=== PATIENT | female | born 1945 | race Caucasian/White ===

== ENCOUNTER 2017-01-26 01:57 | Inpatient (IN) | payer OTHER, MEDICARE ==
[~2017-01-26] VITALS: Ht 167.6 cm; Wt 74.6 kg
[~2017-01-26 01:57] MED LIST: BREO ELLIPTA 11 EACH; CHLORTHALIDONE50 M1 PO; DILANTIN100 M1 PO; FOLIC ACID1 M1 PO; METHOTREXATE2.5 M2 PO; MULTI-DAY VITA1 EACH PO; PHENOBARBITAL32.4 M1; POTASSIUM CHLO20 ME2 PO; PRAVACHOL80 M1 PO; PREDNISONE2.5 M1 PO; VITAMIN D2000 UNIT PO
--- NOTE | 2017-01-26 12:31 | Admission Certification ---
Admission Certification Certification Statement - As attending physician, I certify that at the time of - admission, based on clinical presentation, severity of - symptoms, need for further diagnostic testing and - therapeutic interventions, and risk of adverse outcomes - without in-hospital treatment, in my clinical assessment, - this patient requires an acute hospital stay for a minimum - of two nights or longer. I have also considered psychsocial - factors such as support system, advanced age, financial - issues, cognitive issues, and failed out-patient treatments, - past re-admission history, safety of patient, and lack of - compliance as applicable. Specific rationale supporting this admission is: Viraj. chest surgery with postoperative intensive care unit stay
--- NOTE | 2017-01-26 12:37 | Operative Report ---
Operative/Inv Procedure Report Surgery Date: 01/26/17 Name of Procedure: Right bilobectomy with mediastinal lymph node dissection Pre-Operative Diagnosis: Right upper lobe lung cancer Post-Operative Diagnosis: Same Estimated Blood Loss: less than 50ml Surgeon/Physician Coder: QAMAR CAMACHO,YANG Molina Anesthesia: general endotracheal tube Operative/Procedure Note Note: After placement of monitoring lines and induction of general anesthesia the double-lumen endotracheal tube was properly positioned with fiberoptic bronchoscopy. The patient was placed in the left lateral decubitus position and her right chest prepped and draped in a sterile fashion. Posterolateral thoracotomy incision was made in the chest was entered through the fifth intercostal space. The tumor was isolated on the pleural surface of the right upper lobe. There was no distinction at all of the minor fissure and the tumor was adjacent to the area where the minor fissure would be predicted based upon the vascular anatomy. Given these findings a decision was made that as an oncologic procedure the patient was better suited to a right upper and middle lobectomy with concerns of inadequate lymphatic coverage. Her primary function test done preoperatively supported bilobectomy for pulmonary standpoint. Dissection was done around the hilum and the apical anterior branch was ligated with the Endo ANGIE vascular stapler. Dissection at the base of the fissure allowed completion of the fissure with the Endo ANGIE stapler anteriorly and posteriorly along the major fissure. With that the middle lobe and residual upper lobe pulmonary arterial branches were identified and divided. The superior pulmonary vein was encircled and was ligated with the Endo ANGIE vascular curve tip stapler. The middle lobe bronchus was secured with the purple load of the Endo ANGIE stapler. The upper lobe bronchus was divided with the TA 60 stapler. Intraoperative frozen section showed showed no evidence of tumor at the bronchial stump. Lymph nodes removed from level for level VII. The of her pulmonary ligament was divided and there were no lymph nodes found in this area. The bronchus was insufflated under water to 30 mmHg with no evidence of air leak. The cut edges of the fissures were sprayed with sealant. The chest was drained with straight and angled 28 Norwegian chest tube. The ribs were reapproximated pericostal suture and the lung was reinsufflated under direct vision. The wound was then closed anatomically with running Vicryl suture followed by running Vicryl subcuticular suture. The patient heart of procedure well and brought to the room awake and extubated in stable condition. CC: JAYLON CAMACHO,SUSHMA Lam; ALISSA CAMACHO,RON Loera; MAURA CAMACHO,SOMANY
--- NOTE | 2017-01-26 13:16 | RADIOLOGY REPORT ---
EXAMINATION: XR PORTABLE CHEST CLINICAL INFORMATION: Status post right lobe lobectomy COMPARISON: Prior chest 12/19/2016 TECHNIQUE: Portable frontal view of the chest was obtained. FINDINGS: 2 [address] are in place. There is no pneumothorax. Decreased lung volumes consistent with history of lobectomy. Surgical clips overlie the right chest and axillary region. Small amount of air noted in the soft tissues overlying the right chest. Lungs clear IMPRESSION: Postop changes with chest tubes in place without pneumothorax
[2017-01-26 16:00] VITALS: BP 142/78; BP 147/70
--- NOTE | 2017-01-26 16:06 | PN- Thoracic Surgery ---
Subjective Subjective: Postop check: Complaints of pain to the right lateral chest wall region. 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 She denies any shortness of breath. Objective Vital Signs and I&Os Vital signs stable afebrile O2 sat 93% on 3 L Heart rate in the 70s Physical Exam: Well-developed well-nourished no apparent distress. HEENT: Atraumatic, Neck: Supple, no lymphadenopathy. Trachea midline Respiratory: No respiratory distress Left lung with minimal crackles Right lung, breath sounds decreased, breath sounds noted throughout lung mitchell. Chest tubes with small amount of bloody drainage. Small air leak noted. Dressings clean dry and intact Extremities: No edema, no calf pain Neuro: Alert and oriented x3 Psych: Mood affect normal, Skin: Warm and dry, no rash on exposed skin Results Recent Imaging Studies: PATIENT: EFE PEREZ PRESENT AGE: 72 PATIENT ACCOUNT NO: [id number] : 44 LOCATION: [facility] ORDERING PHYSICIAN: YANG FOOTE MD, SERVICE DATE: 01/26/17 EXAM TYPE: RAD - XRY-PORTABLE CHEST XRAY EXAMINATION: XR PORTABLE CHEST CLINICAL INFORMATION: Status post right lobe lobectomy COMPARISON: Prior chest 12/19/2016 TECHNIQUE: Portable frontal view of the chest was obtained. FINDINGS: 2 [address] in place. There is no pneumothorax. Decreased lung volumes consistent with history of lobectomy. Surgical clips overlie the right chest and axillary region. Small amount of air noted in the soft tissues overlying the right chest. Lungs clear IMPRESSION: Postop changes with chest tubes in place without pneumothorax DICTATED BY: FLORIDALMA TIERNEY MD DATE/TIME DICTATED:01/26/171309 SCREEN PRINTING SUPERVISOR:SYLVIA DATE/TIME TRANSCRIBED:01/26/171309 Assessment/Plan Assessment/Plan 72-year-old female postop day 0 status post right upper lobe lobectomy Postop chest x-ray without pneumothorax, repeat in a.m. Dilaudid RADIATION THERAPY TECHNOLOGIST Supplemental oxygen and respiratory treatments as necessary Continue chest tube to low wall suction, plan to discontinue posterior chest tube tomorrow unless significant amount of bloody drainage. Perioperative antibiotics DVT prophylaxis with heparin and alps Continue usual medication, seizure meds Clear diet for now, advance as tolerated DC IV fluids and tolerating adequate by mouth Dressing change postop day 2 Continue ICU monitoring Core Measures/Miscellaneous Venous Thromboembolism VTE Risk Factors: Age > 40, Surgery VTE Contraindications: No Contraindications VTE Diagnosis: No Beta Alverto Is Beta Alverto a Home Med? No Antibiotics Is Patient on Antibiotics? Yes If Yes: prophylaxis
[2017-01-26 18:00] VITALS: BP 129/68
[2017-01-26 20:00] VITALS: BP 122/70
--- NOTE | 2017-01-26 22:22 | Admission Core Measures ---
Admission Meds I reviewed the following Meds: Current Medications Sig/Nette Start time Last Medication Dose Stop Time Status Admin Acetaminophen 650 MG Q6P PRN 01/26 1545 AC (Tylenol) Acetaminophen 1,000 MG Q8P PRN 01/26 1545 AC (Ofirmev) 01/27 1314 Al Hydroxide/Mg 30 ML Q6P PRN 01/26 1545 AC Hydroxide (Maalox Plus) Albuterol Sulfate 3 ML Q4 01/26 2200 AC 01/26 (Proventil) 1854 Albuterol Sulfate 3 ML Q4P PRN 01/26 1545 AC (Proventil) Budesonide/ 1 PUF BID 01/26 2200 AC 01/26 Formoterol Fumarate 2133 (SYMBICORT) Cefazolin Sodium 2 GM IQ8 01/26 1600 AC 01/26 (Kefzol) 01/27 0029 1726 N/A 1 UNIT (No Carrier) Chlorthalidone 50 MG DAILY 01/27 1000 AC (Hygroton) Cholecalciferol 2,000 IU DAILY 01/27 1000 AC (Vitamin D) Dextrose/Sodium 1,000 ML .[id number] 01/26 1545 AC 01/26 Chloride 1546 (D5-Normal Saline) Docusate Sodium 100 MG DAILY NEEDED PRN 01/26 1545 AC (Colace) Folic Acid 1 MG DAILY 01/27 1000 AC (Folic Acid) Heparin Sodium 5,000 UNIT Q8 01/26 2200 AC 01/26 (Porcine) 2133 Hydromorphone HCl 50 MG Q24H PRN 01/26 1545 CAN Sodium Chloride 45 ML (Normal Saline 50ML Bag) Hydromorphone HCl 50 MG Q24H PRN 01/26 1330 AC 01/26 (Dilaudid) 1546 Sodium Chloride 45 ML (Normal Saline 50ML Bag) Methotrexate 7.5 MG QFRI 02/02 0700 AC (Methotrexate 2.5MG Tab) Multivitamins 1 TAB DAILY 01/27 1000 AC (Theragran Vitamins) Ondansetron HCl 4 MG Q6P PRN 01/26 1545 AC (Zofran) Phenobarbital 32.4 MG TID 01/26 1600 AC 01/26 2133 Phenytoin 300 MG QPM 01/26 2200 CAN (Dilantin) Phenytoin 100 MG TID 01/26 1600 AC 01/26 (Dilantin ER) 2132 Polyethylene Glycol 17 GM DAILY NEEDED PRN 01/26 1545 AC (Miralax) Potassium Chloride 20 MEQ BID 01/26 2200 AC 01/26 (K-Dur) 2132 Pravastatin Sodium 80 MG 1700 01/27 1700 AC (Pravachol) Prednisone 2.5 MG DAILY 01/27 1000 AC (Prednisone) Prochlorperazine 10 MG Q6P PRN 01/26 1545 AC (Compazine) Promethazine HCl 12.5 MG Q6P PRN 01/26 1545 AC (Phenergen) 02/02 1314 Senna 374 MG AT BEDTIME NEED.. 01/26 1545 AC (Senokot) Acute Coronary Syndrome Inclusion Criteria ACS Diagnosis No Inpatient Core Measures LDL Reminder: If No, please order W/I first 24hr of stay Congestive Heart Failure Inclusion Criteria CHF Diagnosis No Cerebrovascular accident Inclusion Criteria CVA/TIA Diagnosis No Inpatient Core Measures Bedside Swallow Eval Reminder: If BSE failed, place ST order Antithrombotic Reminder: Order Antithrombotic Medication by end of day 2 Antithrombotic Reminder: Document Reason Antithrombotic Not ordered by end of day 2 AFIB/Flutter Reminder: If Present, add to problem list AFIB/Flutter Reminder: Order Anticoag Medication for pts with AFIB/Flutter Atherosclerosis Reminder: If Present, add to problem list LDL Reminder: If No, please order W/I first 24hr of stay PT Order Reminder: If No, please order Venous thromboembolism Inpatient Core Measures VTE Risk Factors: Surgery No [facility] V[facility] prophylaxis d/t No contraindications No VTE Pharm Prophylaxis d/t No contraindications Inclusion Criteria - Per Current guidelines, there needs to be overlap - treatment for the first 5 days of Warfarin therapy. - Parenteral Anticoagulation (IV or SC) needs to be - given along with Warfarin therapy. VTE Diagnosis No VTE Type NONE VTE Confirmed by (Test) NONE Problem List As ranked by this Provider includes Assessment & Plan 1. S/P lobectomy of lung HOME MEDS Home Med List Chlorthalidone 50 MG TABLET 1 TAB PO DAILY HTN (Reported) Cholecalciferol (Vitamin D3) (Vitamin D) 2,000 UNIT CAPSULE 1 CAP PO DAILY PROPHO (Reported) Folic Acid 1 MG TABLET 1 TAB PO DAILY PROPHO (Reported) Methotrexate 2.5 MG TABLET 3 TAB PO QW RA (Reported) Multivitamin (Multi-Day Vitamins) 1 EACH TABLET 1 TAB PO DAILY PROPHO ( Reported) Phenytoin (Dilantin) 100 MG CAPSULE 3 CAP PO NIGHTLY SEIZURE DISORDER ( Reported) Potassium Chloride 20 MEQ TAB.ER.PRT 1 TAB PO BID WITH WATER PILL (Reported) Pravastatin Sodium (Pravachol) 80 MG TABLET 1 TAB PO DAILY CHOLESTYEROL ( Reported) Prednisone 2.5 MG TABLET 1 TAB PO DAILY RA (Reported)
[2017-01-27] VITALS: BP 116/74
[2017-01-27 04:00] VITALS: BP 122/70
[2017-01-27 04:47] LABS: ABSOLUTE BASOPHIL COUNT 0 /CUMM (0.0-0.2); ABSOLUTE EOSINOPHIL COUNT 0.1 /CUMM (0.0-0.7); ABSOLUTE GRANULOCYTE CT 8.8 /CUMM (1.4-6.5); ABSOLUTE LYMPH COUNT 1.1 /CUMM (1.2-3.4); BASOPHIL % 0.2 % (0.0-2.0); EOSINOPHIL % 0.5 % (0-5); GRANULOCYTE % 80.2 % (42.2-75.2); MEAN CORPUSCULAR HGB 31.8 PG (27.0-31.0); MEAN CORPUSCULAR HGB CONC 33.4 G/DL (33.0-37.0); MEAN PLATELET VOLUME 7.1 FL (7.4-10.4); PLATELET COUNT 293 /CUMM (130-400); RBC DISTRIBUTION WIDTH 14.1 % (11.5-14.5); RED BLOOD CELL CT 4.21 /CUMM (4.20-5.40); WHITE BLOOD CELL COUNT 10.9 /CUMM (4.8-10.8)
--- NOTE | 2017-01-27 05:46 | PN- Thoracic Surgery ---
Subjective Subjective: No issues overnight. some pain, helped w pain meds. no sob/n/v. taking little clrs Objective Vital Signs and I&Os Vital Signs Date Time Temp Pulse Resp B/P B/P Pulse O2 O2 Flow FiO2 Mean Ox Delivery Rate 01/27 0400 97.8 70 14 122/70 01/27 0400 95 Nasal 2.0L Cannula 01/27 0138 96 Nasal 2.0L Cannula 01/27 0000 97.4 70 14 116/74 01/27 0000 97.4 70 14 116/74 96 Nasal 2.0L Cannula 01/27 0000 96 Nasal 2.0L Cannula 01/26 2000 97.9 78 22 122/70 01/26 2000 95 Nasal 2.0L Cannula 01/26 1910 Nasal 2.0L Cannula 01/26 1800 70 20 129/68 01/26 1800 70 20 129/68 96 Nasal 2.0L Cannula 01/26 1600 97.0 70 20 147/70 01/26 1600 97 Nasal 2.0L Cannula 01/26 1600 97.0 76 22 142/78 97 Nasal 3.0L Cannula Intake & Output 01/27 0800 01/27 0000 01/26 1600 01/26 0800 01/26 0000 01/25 1600 Intake Total 793 Output Total 790 Balance 3 Intake, IV 553 Intake, Oral 240 Output, Chest 390 Tube Drainage Output, Urine 400 Patient 165 lb Weight Weight Bed scale Measurement Method CT out: ant:40cc/8h, post:140cc/8h Physical Exam: GEN: NAD CARD: s1s2 RRR PULM: +bs throughout, dressings with bloody staining, R CTx2 to lcws, no AL, serosang drainage EXT: calves soft nt Current Medications: Current Medications Sig/Nette Start time Last Medication Dose Route Stop Time Status Admin Acetaminophen 650 MG Q6P PRN 01/26 1545 AC PO Acetaminophen 1,000 MG Q8P PRN 01/26 1545 AC IV 01/27 1314 Al Hydroxide/Mg 30 ML Q6P PRN 01/26 1545 AC Hydroxide PO Albuterol Sulfate 3 ML Q4 01/26 2200 AC 01/27 INH 0431 Albuterol Sulfate 3 ML Q4P PRN 01/26 1545 AC INH Budesonide/ 1 PUF BID 01/26 2200 AC 01/26 Formoterol Fumarate INH 2133 Cefazolin Sodium 2 GM IQ8 01/26 1600 DC 01/26 N/A 1 UNIT IV 01/27 0029 2356 Chlorthalidone 50 MG DAILY 01/27 1000 AC PO Cholecalciferol 2,000 IU DAILY 01/27 1000 AC PO Dexamethasone 8 MG .STK-MED ONE 01/26 0909 DC IM 01/26 0910 Dextrose/Sodium 1,000 ML .[id number] 01/26 1545 AC 01/27 Chloride IV 0418 Docusate Sodium 100 MG DAILY NEEDED PRN 01/26 1545 AC PO Fentanyl Citrate 250 MCG .STK-MED ONE 01/26 0908 DC IM 01/26 0909 Folic Acid 1 MG DAILY 01/27 1000 AC PO Heparin Sodium 5,000 UNIT Q8 01/26 2200 AC 01/26 (Porcine) SC 2133 Hydromorphone HCl 50 MG Q24H PRN 01/26 1545 CAN Sodium Chloride 45 ML IV Hydromorphone HCl 50 MG Q24H PRN 01/26 1330 AC 01/26 Sodium Chloride 45 ML IV 1546 Hydromorphone HCl 2 MG .STK-MED ONE 01/26 1306 DC IM 01/26 1307 Hydromorphone HCl 2 MG .STK-MED ONE 01/26 0908 DC IM 01/26 0909 Methotrexate 7.5 MG QFRI 02/02 0700 AC PO Midazolam HCl 2 MG .STK-MED ONE 01/26 0908 DC IM 01/26 0909 Multivitamins 1 TAB DAILY 01/27 1000 AC PO Ondansetron HCl 4 MG Q6P PRN 01/26 1545 AC IV Phenobarbital 32.4 MG TID 01/26 1600 AC 01/26 PO 2133 Phenytoin 300 MG QPM 01/26 2200 CAN PO Phenytoin 100 MG TID 01/26 1600 AC 01/26 PO 2133 Polyethylene Glycol 17 GM DAILY NEEDED PRN 01/26 1545 AC PO Potassium Chloride 20 MEQ BID 01/26 2200 AC 01/26 PO 2133 Pravastatin Sodium 80 MG 1700 01/27 1700 AC PO Prednisone 2.5 MG DAILY 01/27 1000 AC PO Prochlorperazine 10 MG Q6P PRN 01/26 1545 AC PO Promethazine HCl 12.5 MG Q6P PRN 01/26 1545 AC IV 02/02 1314 Remifentanil 3 MG .STK-MED ONE 01/26 0908 DC IV 01/26 0909 Senna 374 MG AT BEDTIME NEED.. 01/26 1545 AC PO Results Last 48 Hours of Labs: Laboratory Tests 01/27 0410 Chemistry Sodium (137 - 145 mmol/L) 132 L Potassium (3.5 - 5.1 mmol/L) 3.0 L Chloride (98 - 107 mmol/L) 91 L Carbon Dioxide (22 - 30 mmol/L) 31 H Anion Gap (5 - 16) 10 BUN (7 - 17 mg/dL) 9 Creatinine (0.5 - 1.0 mg/dL) 0.5 Estimated GFR (>60 ml/min) > 60 BUN/Creatinine Ratio (7 - 25 %) 18.0 Hematology CBC w Diff NO MAN DIFF REQ WBC (4.8 - 10.8 /CUMM) 10.9 H RBC (4.20 - 5.40 /CUMM) 4.21 Hgb (12.0 - 16.0 G/DL) 13.4 Hct (37 - 47 %) 40.0 MCV (81.0 - 99.0 FL) 95.0 MCH (27.0 - 31.0 PG) 31.8 H RDW (11.5 - 14.5 %) 14.1 Plt Count (130 - 400 /CUMM) 293 MPV (7.4 - 10.4 FL) 7.1 L Gran % (42.2 - 75.2 %) 80.2 H Lymphocytes % (20.5 - 51.1 %) 10.2 L Monocytes % (1.7 - 9.3 %) 8.9 Eosinophils % (0 - 5 %) 0.5 Basophils % (0.0 - 2.0 %) 0.2 Absolute Granulocytes (1.4 - 6.5 /CUMM) 8.8 H Absolute Lymphocytes (1.2 - 3.4 /CUMM) 1.1 L Absolute Monocytes (0.10 - 0.60 /CUMM) 1.0 H Absolute Eosinophils (0.0 - 0.7 /CUMM) 0.1 Absolute Basophils (0.0 - 0.2 /CUMM) 0 PUBS MCHC (33.0 - 37.0 G/DL) 33.4 Toxicology Phenytoin (10.0 - 20.0 ug/mL) 4.3 L Recent Imaging Studies: CXR pdg Assessment/Plan Assessment/Plan A: POD1 sp R upper/middle lobectomy, stable. P: am CXR, ?DC posterior CT advance diet as tolerated, HL oob dvt ppx home meds prn pain meds replete K, am labs will dw attending Core Measures/Miscellaneous Venous Thromboembolism VTE Risk Factors: Age > 40, Surgery VTE Contraindications: No Contraindications VTE Diagnosis: No VTE Type: NONE VTE Confirmed by (Test): NONE Beta Alverto Is Beta Alverto a Home Med? No Antibiotics Is Patient on Antibiotics? Yes If Yes: prophylaxis
--- NOTE | 2017-01-27 07:57 | RADIOLOGY REPORT ---
EXAMINATION: XR PORTABLE CHEST CLINICAL INFORMATION: Status-post right middle and upper lobectomies. COMPARISON: Prior chest radiographs, most recently 01/26/2017. TECHNIQUE: Portable frontal view of the chest was obtained. FINDINGS: There is stable mild cardiomegaly. No congestive heart failure is seen. 2 right thoracostomy tubes are unchanged in position. No pneumothorax is seen. There is mild elevation of the right hemidiaphragm. There are right hilar and axillary surgical clips. There is mild left mid and lower lung field airspace disease. The right lung field appears relatively clear. There is no pleural effusion. No acute osseous abnormality is seen. IMPRESSION: 1. Right lung field postoperative changes are redemonstrated. Right thoracostomy tubes are unchanged in positions. There is no significant pneumothorax seen. 2. Early left mid and lower lung field airspace disease is suspected. . Recommend radiographic follow-up to clearance.
[2017-01-27 08:00] VITALS: BP 130/60
--- NOTE | 2017-01-27 11:14 | Cons- CRCU ---
General Information and HPI Consulting Request Date of Consult: 01/27/17 Requested By: surg History of Present Illness: Right bilobectomy with mediastinal lymph node dissection Came in for surgery patient underwent above procedure In the ICU for postop management No significant complaints Much better after surgery Outpatient medications reviewed No complaints Chest tube in On room air Continues to cough Past history significant for hypertension hyperlipidemia rheumatoid arthritis breast cancer now with lung cancer Patient is on methotrexate Previous mastectomy Former smoker Allergies/Medications Allergies: Coded Allergies: No Known Allergies (01/23/17) Home Med List: Chlorthalidone 50 MG TABLET 1 TAB PO DAILY HTN (Reported) Cholecalciferol (Vitamin D3) (Vitamin D) 2,000 UNIT CAPSULE 1 CAP PO DAILY PROPHO (Reported) Fluticasone/Vilanterol (Breo Ellipta 100-25 Mcg INH) 100 MCG-25 MCG/DOSE BLST.W.DEV copd (Reported) Folic Acid 1 MG TABLET 1 TAB PO DAILY PROPHO (Reported) Methotrexate 2.5 MG TABLET 3 TAB PO QW RA (Reported) SUNDAY Multivitamin (Multi-Day Vitamins) 1 EACH TABLET 1 TAB PO DAILY PROPHO ( Reported) Phenobarbital 32.4 MG TABLET SEIZURE DISORDER (Reported) Phenytoin (Dilantin) 100 MG CAPSULE 3 CAP PO NIGHTLY SEIZURE DISORDER ( Reported) Potassium Chloride 20 MEQ TAB.ER.PRT 1 TAB PO BID WITH WATER PILL (Reported) Pravastatin Sodium (Pravachol) 80 MG TABLET 1 TAB PO DAILY CHOLESTYEROL ( Reported) Prednisone 2.5 MG TABLET 1 TAB PO DAILY RA (Reported) Review of Systems Review of Systems Constitutional: Reports: see HPI. Past History Medical History Neurological: seizure, EPILEPSY EENT: NONE Cardiovascular: hypertension, hyperlipidemia Respiratory: COPD Gastrointestinal: NONE Hepatic: NONE Renal: NONE Musculoskeletal: rheumatoid arthritis Psychiatric: NONE Endocrine: NONE Blood Disorders: NONE Cancer(s): breast cancer, lung cancer LUMBER MATERIAL HANDLER/Reproductive: NONE Surgical History Surgical History: RIGHT MASTECTOMY TONSILECTOMY Psychosocial History Where Do You Live? Home Smoking Status: Former Smoker Exam & Diagnostic Data Last 24 Hrs of Vital Signs/I&O Vital Signs Date Time Temp Pulse Resp B/P B/P Pulse O2 O2 Flow FiO2 Mean Ox Delivery Rate 01/27 0817 98 Nasal 2.0L Cannula 01/27 0800 96 Nasal 2.0L Cannula 01/27 0800 98.5 80 18 130/60 96 Nasal 2.0L Cannula 01/27 0400 97.8 70 14 122/70 01/27 0400 95 Nasal 2.0L Cannula 01/27 0138 96 Nasal 2.0L Cannula 01/27 0000 97.4 70 14 116/74 01/27 0000 97.4 70 14 116/74 96 Nasal 2.0L Cannula 01/27 0000 96 Nasal 2.0L Cannula 01/27 2000 97.9 78 22 122/70 01/26 2000 95 Nasal 2.0L Cannula 01/26 1910 Nasal 2.0L Cannula 01/26 1800 70 20 129/68 14 1800 70 20 129/68 96 Nasal 2.0L Cannula 01/26 1600 97.0 70 20 147/70 01/26 1600 97 Nasal 2.0L Cannula 01/26 1600 97.0 76 22 142/78 97 Nasal 3.0L Cannula Intake & Output 01/27 1600 01/27 0800 01/27 0000 Intake Total 783 793 Output Total 650 790 Balance 133 3 Intake, IV 663 553 Intake, Oral 120 240 Output, Chest 200 390 Tube Drainage Output, Urine 450 400 Patient 165 lb Weight Weight Bed scale Measurement Method Last 48 Hrs of Labs/Marc: Laboratory Tests 01/27/17 0410: Anion Gap 10, Estimated GFR > 60, BUN/Creatinine Ratio 18.0, CBC w Diff NO MAN DIFF REQ, RBC 4.21, MCV 95.0, MCH 31.8 H, RDW 14.1, MPV 7.1 L, Gran % 80.2 H, Lymphocytes % 10.2 L, Monocytes % 8.9, Eosinophils % 0.5, Basophils % 0.2, Absolute Granulocytes 8.8 H, Absolute Lymphocytes 1.1 L, Absolute Monocytes 1.0 H, Absolute Eosinophils 0.1, Absolute Basophils 0, PUBS MCHC 33.4, Phenytoin 4.3 L Assessment/Plan Impression/Plan: This is a lady with moderate obstructive lung disease, hypertension, rheumatoid arthritis, previous breast cancer now here for lung cancer surgery. Patient underwent right bilobectomy with mediastinal lymph node dissection. Issues include Postoperative pain and cough doing much better Lung cancer status post surgery No significant air leak Ongoing chest tube management Rheumatoid arthritis on methotrexate hence immunosuppressed Hypertension, hyperlipidemia, previous history of breast cancer unremarkable History of seizure on appropriate medications RECOMMENDATION Hold methotrexate 2 patient is fully better should be held for the next dose or 2 every Sunday Continue current medications Continue statins, folic acid, vitamin D. Hold chlorthalidone the patient is better Continue phenytoin and phenobarbital We will follow closely Postoperative Thoracotomy management per cardiothoracic surgery Consult Acknowledgment - Thank you for your consult request.
[2017-01-27 16:00] VITALS: BP 124/75
[2017-01-27 20:00] VITALS: BP 133/61
[2017-01-27 22:00] VITALS: BP 151/73
[2017-01-28] VITALS: BP 120/72
[2017-01-28 04:00] VITALS: BP 135/74
--- NOTE | 2017-01-28 05:45 | PN- Thoracic Surgery ---
Subjective Subjective: Patient states that she is feeling better every day. Pain is less. No shortness of breath. Mild pain at chest tube site Objective Vital Signs and I&Os Vital Signs Date Time Temp Pulse Resp B/P B/P Pulse O2 O2 Flow FiO2 Mean Ox Delivery Rate 01/28 0351 90 Room Air 01/28 0322 93 Room Air 01/28 0000 98.4 98 14 120/72 07/ 0000 92 Room Air 01/28 0000 98.4 98 14 120/72 92 Room Air 01/27 2200 102 14 151/73 98 Room Air 01/27 2000 98.4 107 10 133/61 01/27 2000 93 Room Air 01/27 1832 96 Room Air Room Air 01/27 1600 95 Room Air 01/27 1600 100.4 99 12 124/75 95 Room Air 01/27 1200 92 Room Air 01/27 0817 98 Nasal 2.0L Cannula 01/27 0800 96 Nasal 2.0L Cannula 01/27 0800 98.5 80 18 130/60 96 Nasal 2.0L Cannula Intake & Output 01/28 0800 16 0000 15 1600 15 0800 01/27 0000 14 1600 Intake Total 676 900 783 793 Output Total 785 360 650 790 Balance -109 540 133 3 Intake, IV 226 400 663 553 Intake, Oral 450 500 120 240 Number 0 Bowel Movements Output, Chest 60 10 200 390 Tube Drainage Output, Urine 725 350 450 400 Patient 165 lb Weight Weight Bed scale Measurement Method Chest tube with 60 mL of serosanguineous output last night Physical Exam: Well-developed well-nourished no apparent distress. Sitting; declined on stretcher HEENT: Atraumatic, extraocular motion intact Neck: Supple, no lymphadenopathy trachea midline, Heart: Regular rate and rhythm no murmur Respiratory: No respiratory distress Left lung sounds are normal Right-sided lung sounds slightly diminished, minimal crackles. Right-sided chest tube is in place with small amount of serosanguineous drainage. No air leak. Dressing is mildly stained with serosanguineous discharge. Thoracotomy chest tube site dressing is clean dry and intact. Extremities: No edema, no calf pain Neuro: Alert and oriented x3 Psych: Mood affect normal, normal memory normal judgment. Skin: Warm and dry, no rash on exposed skin Assessment/Plan Assessment/Plan A: POD 2 sp R upper/middle lobectomy, stable. P: am CXR Regular diet Continue total respiratory care Follow am labs, patient with hypokalemia, recheck this morning after patient was repleted yesterday oob dvt ppx home meds DC Dilaudid TIN CAN FEEDER, started on oral Percocet and Dilaudid IV when necessary for breakthrough pain Continue anterior chest tube Core Measures/Miscellaneous Venous Thromboembolism VTE Risk Factors: Age > 40, Surgery VTE Contraindications: No Contraindications VTE Diagnosis: No VTE Type: NONE VTE Confirmed by (Test): NONE Beta Alverto Is Beta Alverto a Home Med? No Antibiotics Is Patient on Antibiotics? Yes If Yes: prophylaxis
[2017-01-28 06:38] LABS: ABSOLUTE BASOPHIL COUNT 0 /CUMM (0.0-0.2); ABSOLUTE EOSINOPHIL COUNT 0.1 /CUMM (0.0-0.7); ABSOLUTE GRANULOCYTE CT 7.2 /CUMM (1.4-6.5); ABSOLUTE LYMPH COUNT 1.3 /CUMM (1.2-3.4); ABSOLUTE MONOCYTE COUNT 0.9 /CUMM (0.10-0.60); BASOPHIL % 0.2 % (0.0-2.0); EOSINOPHIL % 0.5 % (0-5); MEAN CORPUSCULAR HGB 31.6 PG (27.0-31.0); MEAN CORPUSCULAR VOLUME 95.8 FL (81.0-99.0); MEAN PLATELET VOLUME 7.1 FL (7.4-10.4); PLATELET COUNT 281 /CUMM (130-400); RBC DISTRIBUTION WIDTH 14.3 % (11.5-14.5); RED BLOOD CELL CT 4.07 /CUMM (4.20-5.40); WHITE BLOOD CELL COUNT 9.5 /CUMM (4.8-10.8)
[2017-01-28 08:00] VITALS: BP 132/62
--- NOTE | 2017-01-28 08:51 | RADIOLOGY REPORT ---
EXAMINATION: XR PORTABLE CHEST CLINICAL INFORMATION: Status post right upper lobectomy COMPARISON: 01/27/2015. TECHNIQUE: Portable portable AP 75 degrees upright view of the chest was obtained. FINDINGS: Right chest tube extends to the lung apex. Surgical clips are seen from prior right lobectomy with resultant decreased size of the right hemithorax. No appreciable pneumothorax. The left lung is clear. The heart is not enlarged. Mild subcutaneous emphysema seen in the right lateral chest wall and right supraclavicular region. IMPRESSION: Improved lung aeration status post right upper lobectomy with postoperative changes. No significant pneumothorax. The left lung is clear.
--- NOTE | 2017-01-28 10:31 | PN- Pulmonary ---
Subjective HPI/Critical Care Issues: Patient states that she is feeling better every day. Pain is less. No shortness of breath. Mild pain at chest tube site Objective Current Medications: Current Medications Sig/Nette Start time Last Medication Dose Route Stop Time Status Admin Acetaminophen 650 MG Q6P PRN 01/26 1545 AC PO Acetaminophen 1,000 MG Q8P PRN 01/26 1545 DC IV 01/27 1314 Al Hydroxide/Mg 30 ML Q6P PRN 01/26 1545 AC Hydroxide PO Albuterol Sulfate 3 ML Q4 01/26 2200 AC 01/28 INH 1006 Albuterol Sulfate 3 ML Q4P PRN 01/26 1545 AC INH Budesonide/ 1 PUF BID 01/26 2200 AC 01/28 Formoterol Fumarate INH 0903 Chlorthalidone 50 MG DAILY 01/27 1000 AC 01/28 PO 0904 Cholecalciferol 2,000 IU DAILY 01/27 1000 AC 01/28 PO 0903 Docusate Sodium 100 MG DAILY NEEDED PRN 01/26 1545 AC PO Folic Acid 1 MG DAILY 01/27 1000 AC 01/28 PO 0903 Heparin Sodium 5,000 UNIT Q8 01/26 2200 AC 01/28 (Porcine) SC 0624 Hydromorphone HCl 1 MG Q2-3 HRS NEEDED.. 01/28 0545 AC IV Hydromorphone HCl 50 MG Q24H PRN 01/26 1330 DC 01/26 Sodium Chloride 45 ML IV 1546 Methotrexate 7.5 MG QFRI 02/02 0700 AC PO Multivitamins 1 TAB DAILY 01/27 1000 AC 01/28 PO 0903 Ondansetron HCl 4 MG Q6P PRN 01/26 1545 AC IV Oxycodone/ 1 TAB Q4P PRN 01/28 0545 AC Acetaminophen PO Oxycodone/ 2 TAB Q4P PRN 01/28 0545 AC Acetaminophen PO Phenobarbital 32.4 MG TID 01/26 1600 AC 01/28 PO 0903 Phenytoin 100 MG TID 01/26 1600 AC 01/28 PO 0903 Polyethylene Glycol 17 GM DAILY NEEDED PRN 01/26 1545 AC PO Potassium Chloride 40 MEQ ONCE ONE 01/28 1000 DC PO 01/28 1001 Potassium Chloride 40 MEQ ONCE ONE 01/27 1845 DC 01/27 PO 01/27 1846 1834 Potassium Chloride 20 MEQ BID 01/27 1000 DC 01/27 PO 01/27 2201 0933 Potassium Chloride 20 MEQ BID 01/26 2200 AC 01/28 PO 0903 Pravastatin Sodium 80 MG 1700 01/27 1700 AC 01/27 PO 1621 Prednisone 2.5 MG DAILY 01/27 1000 AC 01/28 PO 0903 Prochlorperazine 10 MG Q6P PRN 01/26 1545 AC PO Promethazine HCl 12.5 MG Q6P PRN 01/26 1545 AC 01/28 IV 02/02 1314 0808 Senna 374 MG AT BEDTIME NEED.. 01/26 1545 AC PO Vital Signs & I&O Last 24 Hrs of Vitals and I&O: Vital Signs Date Time Temp Pulse Resp B/P B/P Pulse O2 O2 Flow FiO2 Mean Ox Delivery Rate 01/28 1009 93 Room Air 01/28 0800 95 Room Air 01/28 0800 97.4 97 23 132/62 95 Room Air 01/28 0400 97.8 98 20 135/74 01/28 0351 90 Room Air 01/28 0322 93 Room Air 01/28 0000 98.4 98 14 120/72 07 0000 92 Room Air 01/28 0000 98.4 98 14 120/72 92 Room Air 01/27 2200 102 14 151/73 98 Room Air 01/27 2000 98.4 107 10 133/61 01/27 2000 93 Room Air 01/27 1832 96 Room Air Room Air 01/27 1600 95 Room Air 01/27 1600 100.4 99 12 124/75 95 Room Air 01/27 1200 92 Room Air Intake & Output 01/28 1600 16 0800 01/28 0000 Intake Total 320 676 Output Total 615 785 Balance -295 -109 Intake, IV 200 226 Intake, Oral 120 450 Number 0 0 Bowel Movements Output, Chest 40 60 Tube Drainage Output, Urine 575 725 Impression/Plan Impression/Plan Impression/Plan: This is a lady with moderate obstructive lung disease, hypertension, rheumatoid arthritis, previous breast cancer now here for lung cancer surgery. Patient underwent right bilobectomy with mediastinal lymph node dissection. Issues include Postoperative pain and cough doing much better Lung cancer status post surgery No significant air leak Ongoing chest tube management Rheumatoid arthritis on methotrexate hence immunosuppressed Hypertension, hyperlipidemia, previous history of breast cancer unremarkable History of seizure on appropriate medications RECOMMENDATION Hold methotrexate one or two doses Continue current medications Continue statins, folic acid, vitamin D. Continue phenytoin and phenobarbital We will follow closely Postoperative Thoracotomy management per cardiothoracic surgery
[2017-01-28 16:00] VITALS: BP 122/70
[2017-01-29] VITALS: BP 102/74
--- NOTE | 2017-01-29 05:54 | PN- Thoracic Surgery ---
See Addendum Subjective Subjective: Chest tube was placed to water seal yesterday. No acute events overnight. Patient has no major complaints this morning, but admits to some discomfort at the chest tube insertion site, within expected limits. She is tolerating food, but no bowel movement as of yet. Remains on 2 L of O2 via nasal cannula. She hasn't been out of bed as of yet. Objective Vital Signs and I&Os Vital Signs Date Time Temp Pulse Resp B/P B/P Pulse O2 O2 Flow FiO2 Mean Ox Delivery Rate 01/29 0400 96 Nasal 2.0L Cannula 01/29 0121 94 Room Air 01/29 0000 99.0 94 14 102/74 96 Nasal 2.0L Cannula 01/29 0000 96 Nasal 2.0L Cannula 01/28 2000 93 Room Air 01/28 1700 95 Room Air Room Air 01/28 1600 96 Nasal 2.0L Cannula 01/28 1600 98.1 99 20 122/70 96 Nasal 2.0L Cannula 01/28 1200 95 Room Air 01/28 1009 93 Room Air 01/28 0800 95 Room Air 01/28 0800 97.4 97 23 132/62 95 Room Air Intake & Output 01/29 0800 01/29 0000 16 1600 /16 0800 01/28 0000 15 1600 Intake Total 320 450 320 676 900 Output Total 500 400 615 785 360 Balance -180 50 -295 -109 540 Intake, IV 0 50 200 226 400 Intake, Oral 320 400 120 450 500 Number 0 0 0 Bowel Movements Output, Chest 0 50 40 60 10 Tube Drainage Output, Urine 500 350 575 725 350 Physical Exam: Gen.: Patient is regular. No acute distress. Cardiac: Regular Pulmonary: Lungs are clear to auscultation bilaterally, with some mild inspiratory rhonchi noted on the right side. Chest tube dressings contain a small amount of old drainage. Small air leak is noted. Abdomen: Soft and nondistended. Nontender. Normal bowel sounds are heard. Extremities: 1+ lower extremity edema equal bilaterally is noted. No calf tenderness. Alps are in place. Assessment/Plan Assessment/Plan is a 72-year-old female who is now postoperative day #3 status post right upper and middle lobectomy. The anterior chest tube remains in place with an air leak. Plan: -Follow-up a.m. x-ray. Leave chest tube on water seal for now. -Continue to advance diet as tolerated. -Will change bowel regimen to [id number] as opposed when necessary. -Follow-up morning labs. Monitor potassium. -Mobilized out of bed to a chair today if possible. -Continue his heparin and Alps for DVT prophylaxis. -Percocet as needed for pain. -We'll discuss with attending. Core Measures/Miscellaneous Venous Thromboembolism VTE Risk Factors: Age > 40, Surgery VTE Contraindications: No Contraindications VTE Diagnosis: No VTE Type: NONE VTE Confirmed by (Test): NONE Beta Alverto Is Beta Alverto a Home Med? No Antibiotics Is Patient on Antibiotics? No
[2017-01-29 08:00] VITALS: BP 132/70
[2017-01-29 08:06] LABS: ABSOLUTE BASOPHIL COUNT 0 /CUMM (0.0-0.2); ABSOLUTE EOSINOPHIL COUNT 0.2 /CUMM (0.0-0.7); ABSOLUTE GRANULOCYTE CT 6.9 /CUMM (1.4-6.5); ABSOLUTE LYMPH COUNT 1.1 /CUMM (1.2-3.4); ABSOLUTE MONOCYTE COUNT 0.8 /CUMM (0.10-0.60); BASOPHIL % 0.4 % (0.0-2.0); EOSINOPHIL % 1.8 % (0-5); GRANULOCYTE % 76.8 % (42.2-75.2); HEMATOCRIT 36.9 % (37-47); MEAN CORPUSCULAR HGB 31.7 PG (27.0-31.0); MEAN CORPUSCULAR HGB CONC 33.4 G/DL (33.0-37.0); MEAN PLATELET VOLUME 7.4 FL (7.4-10.4); PLATELET COUNT 281 /CUMM (130-400); RBC DISTRIBUTION WIDTH 14.4 % (11.5-14.5); RED BLOOD CELL CT 3.89 /CUMM (4.20-5.40)
--- NOTE | 2017-01-29 08:43 | RADIOLOGY REPORT ---
EXAMINATION: XR PORTABLE CHEST CLINICAL INFORMATION: Chest tube to waterseal COMPARISON: 01/28/2017 TECHNIQUE: Portable frontal view of the chest was obtained. FINDINGS: There is a right-sided chest tube extending to the apex. Multiple cardiac leads overlie the chest. Surgical clips overlie the right axilla. The lungs are well expanded. There is no significant pneumothorax. No consolidation or edema. No effusion. The cardiomediastinal silhouette is unchanged. Minimal subcutaneous emphysema again is noted overlying the right lateral chest wall. IMPRESSION: No significant change from prior. Postsurgical changes on the right. No significant pneumothorax.
--- NOTE | 2017-01-29 09:56 | PN- Pulmonary ---
Subjective HPI/Critical Care Issues: pt seen and examined afebrile 2LNC Objective Current Medications: Current Medications Sig/Nette Start time Last Medication Dose Route Stop Time Status Admin Acetaminophen 650 MG Q6P PRN 01/26 1545 AC PO Al Hydroxide/Mg 30 ML Q6P PRN 01/26 1545 AC Hydroxide PO Albuterol Sulfate 3 ML Q4 01/26 2200 AC 01/29 INH 0918 Albuterol Sulfate 3 ML Q4P PRN 01/26 1545 AC INH Budesonide/ 1 PUF BID 01/26 2200 AC 01/28 Formoterol Fumarate INH 2109 Chlorthalidone 50 MG DAILY 01/27 1000 AC 01/28 PO 0904 Cholecalciferol 2,000 IU DAILY 01/27 1000 AC 01/28 PO 0903 Docusate Sodium 100 MG BID 01/29 1000 AC PO Docusate Sodium 100 MG DAILY NEEDED PRN 01/26 1545 DC PO Folic Acid 1 MG DAILY 01/27 1000 AC 01/28 PO 0903 Heparin Sodium 5,000 UNIT Q8 01/26 2200 AC 01/29 (Porcine) SC 0500 Hydromorphone HCl 1 MG Q2-3 HRS NEEDED.. 01/28 0545 AC 01/29 IV 0632 Methotrexate 7.5 MG QFRI 02/02 0700 AC PO Multivitamins 1 TAB DAILY 01/27 1000 AC 01/28 PO 0903 Ondansetron HCl 4 MG Q6P PRN 01/26 1545 AC IV Oxycodone/ 1 TAB Q4P PRN 01/28 0545 AC 01/29 [place]etamin[place] PO 0818 Oxycodone/ 2 TAB Q4P PRN 01/28 0545 AC 01/28 Acetaminophen PO 1151 Phenobarbital 32.4 MG TID 01/26 1600 AC 01/28 PO 2111 Phenytoin 100 MG TID 01/26 1600 AC 01/28 PO 2108 Polyethylene Glycol 17 GM DAILY 01/29 1000 AC PO Polyethylene Glycol 17 GM DAILY NEEDED PRN 01/26 1545 DC PO Potassium Chloride 40 MEQ ONCE ONE 01/28 1000 DC 01/28 PO 01/28 1001 1152 Potassium Chloride 20 MEQ BID 01/26 2200 AC 01/28 PO 2109 Pravastatin Sodium 80 MG 1700 01/27 1700 AC 01/28 PO 1630 Prednisone 2.5 MG DAILY 01/27 1000 AC 01/28 PO 0903 Prochlorperazine 10 MG Q6P PRN 01/26 1545 AC PO Promethazine HCl 12.5 MG Q6P PRN 01/26 1545 AC 01/28 IV 02/02 1314 0808 Senna 374 MG DAILY 01/29 1000 AC PO Senna 374 MG AT BEDTIME NEED.. 01/26 1545 DC PO Vital Signs & I&O Last 24 Hrs of Vitals and I&O: Vital Signs Date Time Temp Pulse Resp B/P B/P Pulse O2 O2 Flow FiO2 Mean Ox Delivery Rate 01/29 0400 96 Nasal 2.0L Cannula 01/29 0121 94 Room Air 01/29 0000 99.0 94 14 102/74 96 Nasal 2.0L Cannula 01/29 0000 96 Nasal 2.0L Cannula 01/28 2000 93 Room Air 01/28 1700 95 Room Air Room Air 01/28 1600 96 Nasal 2.0L Cannula 01/28 1600 98.1 99 20 122/70 96 Nasal 2.0L Cannula 01/28 1200 95 Room Air 01/28 1009 93 Room Air Intake & Output 01/29 1600 01/29 0800 01/29 0000 Intake Total 120 320 Output Total 210 500 Balance -90 -180 Intake, IV 0 0 Intake, Oral 120 320 Number 0 0 Bowel Movements Output, Chest 10 0 Tube Drainage Output, Urine 200 500 Patient 165 lb Weight Exam Other Physical Findings: gen awake and alert heent ncat cvs s1, s2 lungs transmitted abd soft bs+ ext without edema chest tube Results Last 24 Hrs of Lab Results: Laboratory Tests 01/29/17 0620: Anion Gap 7, Estimated GFR > 60, Glucose 120 H, Calcium 8.6, Phosphorus 3.6, Magnesium 1.9, Total Bilirubin 0.6, AST 20, ALT 29, Albumin 3.1 L, CBC w Diff NO MAN DIFF REQ, RBC 3.89 L, MCV 95.0, MCH 31.7 H, RDW 14.4, MPV 7.4, Gran % 76.8 H, Lymphocytes % 12.0 L, Monocytes % 9.0, Eosinophils % 1.8, Basophils % 0.4, Absolute Granulocytes 6.9 H, Absolute Lymphocytes 1.1 L, Absolute Monocytes 0.8 H, Absolute Eosinophils 0.2, Absolute Basophils 0, PUBS MCHC 33.4 Impression/Plan Impression/Plan Impression/Plan: Impression 72 year old woman, COPD, RA, hx breast ca, lung ca, s/p RUL and RML lobectomy and mediastinal node resection Plan -pain control -ct management per ct surgery -ins/ous monitoring -on methotrexate -dvt prophylaxis at all times -htn management -TRC/Nebs TTS 40 min
[2017-01-29 16:00] VITALS: BP 140/70
[2017-01-30] VITALS: BP 134/70
--- NOTE | 2017-01-30 05:55 | PN- Thoracic Surgery ---
Subjective Subjective: Remaining chest tube removed yesterday, without any events since removal. She reports her pain is controlled. No shortness of breath. Some expected discomfort with coughing. Tolerating diet. No nausea. Downgraded to gen med status yesterday, but currently still in icu since there were no beds to move to. She anticipates discharge to home soon. Objective Vital Signs and I&Os Vital Signs Date Time Temp Pulse Resp B/P B/P Pulse O2 O2 Flow FiO2 Mean Ox Delivery Rate 01/30 0000 95 Nasal 1.0L Cannula 01/30 0000 96.0 95 24 134/70 95 Nasal 1.0L Cannula 01/29 1704 96 Nasal 1.0L Cannula 01/29 1600 Nasal 1.0L Cannula 01/29 1600 98.7 104 20 140/70 97 Nasal 1.0L Cannula 01/29 1308 94 Nasal 1.0L Cannula 01/29 1200 Nasal 1.0L Cannula 01/29 0800 Nasal 2.0L Cannula 01/29 0800 97.6 93 22 132/70 95 Nasal 2.0L Cannula Intake & Output 01/30 0800 01/30 0000 01/29 1600 01/29 0800 01/29 0000 01/28 1600 Intake Total 480 600 120 320 450 Output Total 600 850 210 500 400 Balance -120 -250 -90 -180 50 Intake, IV 0 0 50 Intake, Oral 480 600 120 320 400 Number 0 0 0 0 Bowel Movements Output, Chest 10 0 50 Tube Drainage Output, Urine 600 850 200 500 350 Patient 165 lb Weight Physical Exam: General - alert & oriented x 3. comfortable. no acute distress. Cardiac - s1s2. reg. Lungs - ctab Abdomen - soft and nondistended. Nontender. Extremities - warm bilaterally. calves soft and nontender b/l. Assessment/Plan Assessment/Plan This 72-year-old female who is now postoperative day #4 s/p right upper and middle lobectomy pain controlled tolerating diet f/u cxr this morning continue IS/TRC. wean off 1L NC as able. oob/ambulation hep sc - dvt ppx d/c planning currently gen med status will d/w Core Measures/Miscellaneous Venous Thromboembolism VTE Risk Factors: Age > 40, Surgery VTE Contraindications: No Contraindications VTE Diagnosis: No VTE Type: NONE VTE Confirmed by (Test): NONE Beta Alverto Is Beta Alverto a Home Med? No Antibiotics Is Patient on Antibiotics? No
--- NOTE | 2017-01-30 06:00 | Patient Discharge Instructions ---
Discharge Instructions General Discharge Information You were seen/treated for: Right upper lobe lung cancer You had these procedures: Surgery Date: 01/26/17 Name of Procedure: Right bilobectomy with mediastinal lymph node dissection Watch for these problems: fever>101.3, increased pain, redness/swelling/drainage, shortness of breath, chest pains No bath, but you may shower: Yes Other wound care: dry guaze dressing change as desired. ok to leave incisions open to air. leave white steri strips in place until they fall off. Special Instructions: continue incentive spirometry at home as directed Diet Continue normal diet: Yes Recommended Diet: Regular Activity Full Activity/No Limits: No Activity Self Limited: Yes Pounds, do NOT lift more than: 10 Acute Coronary Syndrome Inclusion Criteria At DC or during hospital stay patient has or had the following: ACS DIAGNOSIS No Discharge Core Measures Meds if any: Prescribed or Continued at Discharge Meds if any: NOT Prescribed or Continued at Discharge Congestive Heart Failure Inclusion Criteria At DC or during hospital stay patient has or had the following: CHF DIAGNOSIS No Discharge Core Measures Meds if any: Prescribed or Continued at Discharge Meds if any: NOT Prescribed or Continued at Discharge Cerebrovascular accident Inclusion Criteria At DC or during hospital stay patient has or had the following: CVA/TIA Diagnosis No Discharge Core Measures Meds if any: Prescribed or Continued at Discharge Meds if any: NOT Prescribed or Continued at Discharge Venous thromboembolism Inclusion Criteria VTE Diagnosis No VTE Type NONE VTE Confirmed by (Test) NONE Discharge Core Measures - Per Current guidelines, there needs to be overlap - treatment for the first 5 days of Warfarin therapy. - If discharged on Warfarin prior to 5 days of - overlap therapy, the patient will need to be - assessed for post discharge needs including - *Post discharge parental anticoagulation - *Warfarin and/or parental anticoagulation education - *Follow up date to check INR post discharge At least 5 days overlap therapy as Inpatient No Meds if any: Prescribed or Continued at Discharge Note: Overlap Therapy is Warfarin and Anticoagulant Meds if any: NOT Prescribed or Continued at Discharge
[2017-01-30] MEDS ORDERED: PERCOCET 5-3251 EACH PO (06:01)
[2017-01-30] MEDS ORDERED: DOCUSATE SODIU100 M3 PO (06:01)
[2017-01-30 06:15] LABS: ABSOLUTE BASOPHIL COUNT 0 /CUMM (0.0-0.2); ABSOLUTE EOSINOPHIL COUNT 0.3 /CUMM (0.0-0.7); ABSOLUTE GRANULOCYTE CT 5.6 /CUMM (1.4-6.5); ABSOLUTE MONOCYTE COUNT 0.7 /CUMM (0.10-0.60); BASOPHIL % 0.3 % (0.0-2.0); EOSINOPHIL % 3.8 % (0-5); GRANULOCYTE % 73.7 % (42.2-75.2); HEMATOCRIT 34.5 % (37-47); MEAN CORPUSCULAR HGB CONC 33.5 G/DL (33.0-37.0); MEAN CORPUSCULAR VOLUME 95.7 FL (81.0-99.0); MEAN PLATELET VOLUME 6.9 FL (7.4-10.4); PLATELET COUNT 290 /CUMM (130-400); RED BLOOD CELL CT 3.61 /CUMM (4.20-5.40); WHITE BLOOD CELL COUNT 7.6 /CUMM (4.8-10.8)
[2017-01-30 08:00] VITALS: BP 128/72
--- NOTE | 2017-01-30 08:47 | RADIOLOGY REPORT ---
EXAMINATION: XR PORTABLE CHEST CLINICAL INFORMATION: Interval chest tube removal. Atelectasis. Status post postoperative right upper and middle lobectomy. COMPARISON: Several prior chest x-rays, most recent of which is dated 01/29/2017. TECHNIQUE: Portable AP semierect view of the chest was obtained. FINDINGS: The cardiomediastinal silhouette is within normal limits in size. Slight ectasia of the thoracic aorta again seen, unchanged. There is mild volume loss in the right hemithorax with shift of the mediastinum toward the right side. Multiple grupo are seen in the right hilar region, status post right upper and middle lobectomy. Grupo are also seen in the right axilla. There is prominent right paratracheal soft tissue thickening again seen, most likely related to ectasia of the great vessels. No pneumothorax or effusion is seen. The left lung is fully expanded and clear. Diffuse osteopenia is noted. IMPRESSION: 1. Stable postoperative changes in the right hemithorax. 2. No new superimposed focal acute findings seen.
--- NOTE | 2017-01-30 09:21 | PN- Pulmonary ---
Subjective HPI/Critical Care Issues: pt seen and examined chest tubes removed pain controlled no other events Objective Current Medications: Current Medications Sig/Nette Start time Last Medication Dose Route Stop Time Status Admin Acetaminophen 650 MG Q6P PRN 01/26 1545 AC PO Al Hydroxide/Mg 30 ML Q6P PRN 01/26 1545 AC Hydroxide PO Albuterol Sulfate 3 ML EVERY 4 HRS/AWAKE 01/29 2000 AC 01/30 INH 0813 Albuterol Sulfate 3 ML Q4 01/26 2200 DC 01/29 INH 1703 Albuterol Sulfate 3 ML Q4P PRN 01/26 1545 AC INH Budesonide/ 1 PUF BID 01/26 2200 AC 01/29 Formoterol Fumarate INH 2103 Chlorthalidone 50 MG DAILY 01/27 1000 AC 01/29 PO 1015 Cholecalciferol 2,000 IU DAILY 01/27 1000 AC 01/29 PO 1014 Docusate Sodium 100 MG BID 01/29 1000 AC 01/29 PO 2103 Folic Acid 1 MG DAILY 01/27 1000 AC 01/29 PO 1015 Heparin Sodium 5,000 UNIT Q8 01/26 2200 AC 01/30 (Porcine) SC 0538 Hydromorphone HCl 1 MG Q2-3 HRS NEEDED.. 01/28 0545 AC 01/29 IV 0632 Methotrexate 7.5 MG QFRI 02/02 0700 AC PO Multivitamins 1 TAB DAILY 01/27 1000 AC 01/29 PO 1015 Ondansetron HCl 4 MG Q6P PRN 01/26 1545 AC IV Oxycodone/ 1 TAB Q4P PRN 01/28 0545 AC 01/30 Acetaminophen PO 0246 Oxycodone/ 2 TAB Q4P PRN 01/28 0545 AC 01/28 Acetaminophen PO 1151 Phenobarbital 32.4 MG TID 01/26 1600 AC 01/29 PO 2103 Phenytoin 100 MG TID 01/26 1600 AC 01/29 PO 2103 Polyethylene Glycol 17 GM DAILY 01/29 1000 AC 01/29 PO 1014 Potassium Chloride 10 MEQ Q1H 01/30 0745 DC 01/30 IV 01/30 0846 0840 Potassium Chloride 20 MEQ BID 01/26 2200 AC 01/30 PO 0840 Pravastatin Sodium 80 MG 1700 01/27 1700 AC 01/29 PO 1713 Prednisone 2.5 MG DAILY 01/27 1000 AC 01/29 PO 1014 Prochlorperazine 10 MG Q6P PRN 01/26 1545 AC PO Promethazine HCl 12.5 MG Q6P PRN 01/26 1545 AC 01/28 IV 02/02 1314 0808 Senna 374 MG DAILY 01/29 1000 AC 01/29 PO 1014 Vital Signs & I&O Last 24 Hrs of Vitals and I&O: Vital Signs Date Time Temp Pulse Resp B/P B/P Pulse O2 O2 Flow FiO2 Mean Ox Delivery Rate 01/30 0831 94 Nasal 1.0L Cannula 01/30 0000 95 Nasal 1.0L Cannula 01/30 0000 96.0 95 24 134/70 95 Nasal 1.0L Cannula 01/29 1704 96 Nasal 1.0L Cannula 01/29 1600 Nasal 1.0L Cannula 01/29 1600 98.7 104 20 140/70 97 Nasal 1.0L Cannula 01/29 1308 94 Nasal 1.0L Cannula 01/29 1200 Nasal 1.0L Cannula Intake & Output 01/30 1600 01/30 0800 01/30 0000 Intake Total 100 480 Output Total 600 Balance 100 -120 Intake, Oral 100 480 Number 0 Bowel Movements Output, Urine 600 Exam Other Physical Findings: gen awake and alert heent ncat cvs s1, s2 lungs transmitted abd soft bs+ ext without edema Results Last 24 Hrs of Lab Results: Laboratory Tests 01/30/17 0546: Anion Gap 7, Estimated GFR > 60, Glucose 109 H, Calcium 8.7, Phosphorus 3.7, Magnesium 1.9, Total Bilirubin 0.5, AST 32, ALT 38, Albumin 3.1 L, CBC w Diff NO MAN DIFF REQ, RBC 3.61 L, MCV 95.7, MCH 32.0 H, RDW 14.0, MPV 6.9 L, Gran % 73.7, Lymphocytes % 13.6 L, Monocytes % 8.6, Eosinophils % 3.8, Basophils % 0.3, Absolute Granulocytes 5.6, Absolute Lymphocytes 1.0 L, Absolute Monocytes 0.7 H, Absolute Eosinophils 0.3, Absolute Basophils 0, PUBS MCHC 33.5 Impression/Plan Impression/Plan Impression/Plan: Impression 72 year old woman, COPD, RA, hx breast ca, lung ca, s/p RUL and RML lobectomy and mediastinal node resection Plan -pain control -ins/ous monitoring -on methotrexate -dvt prophylaxis at all times -htn management -TRC/Nebs -ct surgery follow up DC planning
[2017-01-30 15:49] VITALS: BP 128/72
[2017-01-30 16:00] VITALS: BP 118/70
--- NOTE | 2017-01-30 17:18 | Surgical Discharge Summary ---
Visit Information Visit Dates Admission Date: 01/26/17 Discharge Date: 01/30/2017 History of Present Illness Chief Complaint: Lung ca Medical History Neurological: seizure, EPILEPSY EENT: NONE Cardiovascular: hypertension, hyperlipidemia Respiratory: COPD Gastrointestinal: NONE Hepatic: NONE Renal: NONE Musculoskeletal: rheumatoid arthritis Psychiatric: NONE Endocrine: NONE Blood Disorders: NONE Cancer(s): breast cancer, lung cancer [employer]/Reproductive: NONE History of MRSA: No History of VRE: No History of CDIFF: No Isolation History: Standard Surgical History Pertinent Surgical History: RIGHT MASTECTOMY TONSILECTOMY Psychosocial History Where Do You Live? Home Who Do You Live With? Patient/Self What is Your Primary Language? Pakistani Review of Systems: See H&P Hospital Course Course Attending Physician: QAMAR CAMACHO,YANG Isbell JR Primary Care Physician: JAYLON CAMACHO,SSUHMA Lam Hospital Course: Patient admitted to ICU following right upper and middle lobectomy on 01/26/2017. Procedure was tolerated well and postoperative course uneventful. At time of discharge, patient's vital signs were stable and within normal limits, post chest tube removal chest xrays were stable and within normal limits and pain was controlled with PO pain medication. Patient was deemed appropriate for discharge to short term rehab. Allergies: Coded Allergies: No Known Allergies (01/23/17) Disposition Summary Disposition Principal Diagnosis: Lung CA, s/p R upper/middle lobectomy Additional Diagnosis: none Discharge Disposition: SNF Discharge Instructions General Discharge Information Code Status: Full Code Patient's Diet: Regular, advance as tolerated Patient's Activity: As tolerated Follow-Up Instructions/Appts: Follow up with Dr. Lawrence in one week Medications at Discharge Discharge Medications: Continue taking these medications: Pravastatin Sodium (Pravachol) 80 MG TABLET 1 Tablet ORAL DAILY Phenobarbital (Phenobarbital) 32.4 MG TABLET THREE TIMES DAILY Chlorthalidone (Chlorthalidone) 50 MG TABLET 1 Tablet ORAL DAILY Potassium Chloride (Potassium Chloride) 20 MEQ TAB.ER.PRT 1 Tablet ORAL TWICE DAILY Phenytoin (Dilantin) 100 MG CAPSULE 3 Capsule ORAL NIGHTLY Prednisone (Prednisone) 2.5 MG TABLET 1 Tablet ORAL DAILY Folic Acid (Folic Acid) 1 MG TABLET 1 Tablet ORAL DAILY Methotrexate (Methotrexate) 2.5 MG TABLET 3 Tablet ORAL Once a Week Instructions: SUNDAY Multivitamin (Multi-Day Vitamins) 1 EACH TABLET 1 Tablet ORAL DAILY Cholecalciferol (Vitamin D3) (Vitamin D) 2,000 UNIT CAPSULE 1 Capsule ORAL DAILY Fluticasone/Vilanterol (Breo Ellipta 100-25 Mcg INH) 100 MCG-25 MCG/DOSE BLST.W.DEV DAILY Start taking the following new medications: Docusate Sodium (Docusate Sodium) 100 MG CAPSULE 100 Milligram ORAL TWICE DAILY as needed for CONSTIPATION Qty = 14 No Refills Oxycodone HCl/Acetaminophen (Percocet 5-325 MG Tablet) 5 MG-325 MG TABLET 1-2 Tablet ORAL EVERY 4-6 HOURS NEEDED as needed for pain control Qty = 36 No Refills
== END 2017-01-30 18:50 | DRG 165 ==
LOC: CRI 01:57 → SDA 01:57 → ENRESERV 13:57 → ENTRNSPT 14:30 → EDTRNSPTSTS 15:00 → CMPTRNSPT 15:23 → CRI 15:26
PROVIDERS: Physician Assistant; Physician Assistant Surgical; ADMIT Thoracic Surgery (Cardiothoracic Vascular Surgery)
PROC: 0BTD0ZZ Resection of Right Middle Lung Lobe, Open Approach (ICD-10-PCS; principal; 2017-01-26)
PROC: 0BTC0ZZ Resection of Right Upper Lung Lobe, Open Approach (ICD-10-PCS; 2017-01-26)
PROC: 0BB Respiratory System, Excision (ICD-10-PCS; 2017-01-26)
PROC: 07B70ZX Excision of Thorax Lymphatic, Open Approach, Diagnostic (ICD-10-PCS; 2017-01-26)
DX: C34.11 Malignant neoplasm of upper lobe, right bronchus or lung (principal); J44.9 Chronic obstructive pulmonary disease, unspecified; G40.909 Epilepsy, unspecified, not intractable, without status epilepticus; M06.9 Rheumatoid arthritis, unspecified; I10 Essential (primary) hypertension; E78.5 Hyperlipidemia, unspecified; Z85.3 Personal history of malignant neoplasm of breast; Z87.891 Personal history of nicotine dependence; E87.6 Hypokalemia
CPT/HCPCS: CCU; 36415; 82436; 87086; 93005; 93010; 97110-GO; 97161-GP; 97530-GO; C9290; C9399; J0131; J0690; J1100; J1170; J1644; J2405; J2550; J3490; J7042